=== PATIENT | female | born 1955 | race African-American/Black ===

== ENCOUNTER 2017-12-16 12:37 | Emergency (ER) | payer MEDICARE, MEDICAID ==
[~2017-12-16] VITALS: Ht 162.6 cm; Wt 71.0 kg
[2017-12-16] MEDS ORDERED: KETOROLAC 60MG/2ML VIAL IM ONE (19:00)
[2017-12-16 19:22] VITALS: BP 147/90
== END 2017-12-16 19:43 | disposition home or self-care (01) ==
LOC: ER 15:11
DX: M25.511 Pain in right shoulder (principal); X58.XXXA Exposure to other specified factors, initial encounter; Y93.89 Activity, other specified; Y92.89 Other specified places as the place of occurrence of the external cause; Y99.8 Other external cause status
CPT/HCPCS: 73030; 96372; 99284; J1885

== ENCOUNTER 2018-07-19 16:06 | Emergency (ER) | payer MEDICARE, MEDICAID ==
[~2018-07-19] VITALS: Ht 157.5 cm; Wt 66.5 kg
[2018-07-19 21:19] VITALS: BP 165/92
[2018-07-19] MEDS ORDERED: IBUPROFEN 600MG TABLET PO ONE (21:30)
== END 2018-07-19 22:21 | disposition home or self-care (01) ==
LOC: ER 16:06
DX: M16.12 Unilateral primary osteoarthritis, left hip (principal); F17.200 Nicotine dependence, unspecified, uncomplicated
CPT/HCPCS: 73502; 99283

== ENCOUNTER 2020-08-05 10:01 | Emergency (ER) | payer MEDICARE, MEDICAID ==
[~2020-08-05] VITALS: Ht 162.6 cm; Wt 71.0 kg
[2020-08-05] MEDS ORDERED: CYCLOBENZAPRINE 10MG TABLET PO STA (10:28)
[2020-08-05] MEDS ORDERED: TOPUD MT (10:30)
[2020-08-05] MEDS ORDERED: KETOROLAC 60MG/2ML VIAL IM ONE (10:30)
[2020-08-05] MEDS ORDERED: ACETAMINOPHEN 325MG TABLET PO ONE (10:30)
[2020-08-05] MEDS ORDERED: IBUP-2028 MT (12:59)
[2020-08-05 13:07] VITALS: BP 165/90
== END 2020-08-05 13:33 | disposition home or self-care (01) ==
LOC: ER 10:09
DX: M79.602 Pain in left arm (principal); R03.0 Elevated blood-pressure reading, without diagnosis of hypertension; Z88.6 Allergy status to analgesic agent
CPT/HCPCS: 73060; 93005; 96372; 99283; J1885

== ENCOUNTER 2021-08-14 13:47 | Emergency (ER) | payer OTHER, MEDICAID ==
[~2021-08-14] VITALS: Ht 162.6 cm; Wt 75.0 kg
[~2021-08-14 13:47] MED LIST: IBUP-2028 MT
[2021-08-14 13:50] VITALS: BP 145/78
[2021-08-14] MEDS ORDERED: ACETAMINOPHEN 325MG TABLET PO STA (13:54)
[2021-08-14] MEDS ORDERED: METHYLPREDNISOLONE SOD SUCC 125 MG/2 ML VIAL IM STA (17:28)
[2021-08-14] MEDS ORDERED: IBUPROFEN 600MG TABLET PO STA (17:28)
[2021-08-14] MEDS ORDERED: NAPR-681 PO (18:12)
== END 2021-08-14 18:30 | disposition home or self-care (01) ==
LOC: ER 14:11
DX: M25.531 Pain in right wrist (principal); M19.041 Primary osteoarthritis, right hand
CPT/HCPCS: 73110; 73130; 96372; 99284; J2930

== ENCOUNTER 2021-12-28 00:58 | Emergency (ER) | payer MEDICARE, MEDICAID ==
[~2021-12-28] VITALS: Ht 162.6 cm; Wt 86.0 kg
[~2021-12-28 00:58] MED LIST changes: +NAPR-681 PO
[2021-12-28] MEDS ORDERED: HYDROCODONE/ACETAMINOPHEN 5/325MG TABLET PO ONE (03:45)
[2021-12-28 03:52] VITALS: BP 165/76
[2021-12-28] MEDS ORDERED: T3 PO (05:25)
== END 2021-12-28 13:49 | disposition home or self-care (01) ==
LOC: ER 00:58
DX: M25.511 Pain in right shoulder (principal); I10 Essential (primary) hypertension; Z59.00 Homelessness unspecified
CPT/HCPCS: 73030; 99283

== ENCOUNTER 2022-01-26 10:00 | Emergency (ER) | payer MEDICARE, MEDICAID ==
[~2022-01-26 10:00] MED LIST changes: +T3 PO
[2022-01-26] MEDS ORDERED: FLUORESCEIN SODIUM 1MG/STRIP BOTHEYE ONE (15:30)
[2022-01-26] MEDS ORDERED: IBUPROFEN 400MG TABLET PO ONE (15:30)
[2022-01-26] MEDS ORDERED: TETRACAINE 0.5% OPHTH DROPS 4ML BOTHEYE ONE (15:30)
[2022-01-26 16:15] LABS: EOSINOPHILS % 0.1 % (0.0-5.0); HEMATOCRIT. 48.4 % (36.0-48.0); HEMOGLOBIN. 16.3 g/dL (12.0-16.0); MEAN CORPUSCULAR HEMOGLOBIN 31.1 pg (28.0-32.0); MEAN PLATELET VOLUME 8.1 fl (7.4-10.4); MONOCYTES % 12.4 % (2.0-8.0); NEUTROPHILS % 40.5 % (40.0-76.0); PLATELET 248 x1000/uL (130-400); RED BLOOD CELL COUNT 5.26 mill/uL (4.2-5.4); RED CELL DISTRIBUTION WIDTH 14.2 % (11.6-14.6)
[2022-01-26 16:33] LABS: CHLORIDE 97 mEq/L (98-107)
[2022-01-26] MEDS ORDERED: NAPR-679 MT (17:24)
[2022-01-26] MEDS ORDERED: POTASSIUM CHLORIDE 20MEQ TABLET SR PO ONE (17:30)
== END 2022-01-26 18:01 | disposition home or self-care (01) ==
LOC: ER 10:00
DX: R51.9 Headache, unspecified (principal); H57.13 Ocular pain, bilateral
CPT/HCPCS: 36415; 80053; 85025; 85651; 99283

== ENCOUNTER 2022-06-08 23:27 | Emergency (ER) | payer MEDICARE, MEDICAID ==
[~2022-06-08] VITALS: Ht 162.6 cm; Wt 82.0 kg
[~2022-06-08 23:27] MED LIST changes: +NAPR-679 MT
[2022-06-08 23:41] VITALS: BP 108/66
[2022-06-09] MEDS ORDERED: NAPROXEN 250MG TABLET PO ONE (04:00)
[2022-06-09] MEDS ORDERED: ACETAMINOPHEN 325MG TABLET PO ONE (04:00)
== END 2022-06-09 04:30 | disposition home or self-care (01) ==
LOC: ER 23:39
DX: M16.11 Unilateral primary osteoarthritis, right hip (principal); I10 Essential (primary) hypertension; E78.00 Pure hypercholesterolemia, unspecified
CPT/HCPCS: 72170; 99283